=== PATIENT | male | born 1960 | race Caucasian/White ===

== ENCOUNTER 2023-08-30 14:33 | Outpatient (AMB) | payer BC, SELFPAY ==
--- NOTE | 2023-08-30 15:07 | HO.NEPHOV_ITS ---
HPI HPI Comments History of Present Illness Details I would the pleasure seeing Zachariah in follow-up for his hypertension. He denies any chest pain, shortness of breath, paroxysmal nocturnal dyspnea, orthopnea, pedal edema, orthostatic or urinary symptoms. He is active and does not take excessive salt in the diet. He avoids nonsteroidal anti- inflammatories. He maintains good hydration. He is on statins. He is closely followed by his primary care physician. [facility] Medical History (Updated 09/11/23 @ 20:18 by Tadeo Roldan MD) Hypertension Surgical History (Updated 08/30/23 @ 15:10 by Tonya Gleason MA) History of knee surgery Social History (Updated 08/30/23 @ 15:11 by Tonya Gleason MA) Alcohol intake: current Patient Tobacco Use Status: Never used Tobacco Vital Signs 08/30/23 15:08 Height 5 ft 10.5 in Weight 178 lb BMI 25.2 BP 126/80 Blood Pressure Location Rt brachial Position Sitting Pulse 66 Pulse Source Pulse Oximeter Pulse Oximetry (%) 98 Oxygen Delivery Method Room Air Physical Exam Vital Signs: Last Vital Signs Pulse 66 08/30/23 15:08 BP 126/80 08/30/23 15:08 Pulse Ox 98 08/30/23 15:08 Oxygen Delivery Method Room Air 08/30/23 15:08 BMI result Body Mass Index 25.2 Const General: comfortable and no acute distress Orientation/consciousness: patient oriented x3 HEENT Head: Yes normocephalic Mouth: Normal oral and palatal mucosa present Eyes EOM: EOMs intact bilaterally Neck Neck: Yes supple Resp Auscultation: clear to auscultation bilaterally Cardio Jugular venous distension: no JVD Rate: regular rate GI Palpation (GI): Soft to palpation Auscultation: normal bowel sounds General: Yes no CVA tenderness Back/Spine/Pelvis Back: no CVA tenderness Skin General skin exam: no rashes or lesions noted Neuro General: patient oriented x3 and moves all extremities Extrem General: Yes no pedal edema Assessment & Plan Assessment & Plan (1) Hypertension: Code(s): I10 - Essential (primary) hypertension Qualifiers: Hypertension type: primary hypertension Qualified Code(s): I10 - Essential (primary) hypertension Plan Zachariah has longstanding hypertension. He is currently on propranolol and amlodi pine. His blood pressure has been at goal. He does not have any orthostatic symptoms. He is maintaining his weight. He tries to keep up with a low-sodium diet. He keeps up with good hydration. He avoids nonsteroidal anti- inflammatories . He did not request any medication refills. I did not make any medication changes today. All questions answered. Follow-up given. Orders: Orders Blood Urea Nitrogen 08/30/23 I10 - Essential (primary) hypertension Electrolytes 08/30/23 I10 - Essential (primary) hypertension Creatinine 08/30/23 I10 - Essential (primary) hypertension Calcium 08/30/23 I10 - Essential (primary) hypertension Protein Creatinine Ratio, Ur 08/30/23 I10 - Essential (primary) hypertension Medications: New amlodipine 5 mg PO BEDTIME 90 tabs 4RF 90 days Coding Level of Care Code Est Pt Level 3 (05226) Diagnoses Primary hypertension I10 Hypertension type: primary hypertension Results Reviewed Nephrology Results: Sodium 145 mmol/L (135-145) 08/30/23 Potassium 4.3 mmol/L (3.3-5.1) 08/30/23 Chloride 109 mmol/L (96-108) H 08/30/23 Carbon Dioxide 31 mmol/L (22-29) H 08/30/23 BUN 19 mg/dL (9-16) H 08/30/23 Creatinine 1.09 mg/dL (0.5-1.4) 08/30/23 Calcium 9.5 mg/dL (8.4-10.2) 08/30/23 Urine Creatinine 159.55 mg/dL 08/30/23 Protein/Creatinin Ratio TNP 08/30/23
[2023-08-30 15:08] VITALS: BP 126/80; PULSE 66; O2SAT 98; BMI 25.2
== END 2023-08-30 15:29 | disposition home or self-care (01) ==
PROVIDERS: PCP Internal Medicine; Visit Provider Internal Medicine Nephrology
DX: I10 Essential (primary) hypertension (principal)
CPT/HCPCS: 99213

== ENCOUNTER 2023-08-30 14:33 | Outpatient (REF) | payer BC, SELFPAY ==
[2023-08-30 16:31] LABS: Anion Gap 9 (12-20); Blood Urea Nitrogen 19 mg/dL (9-16); Calcium 9.5 mg/dL (8.4-10.2); Carbon Dioxide 31 mmol/L (22-29); Chloride 109 mmol/L (96-108); Estimated Glomerular Filt Rate > 60; Potassium 4.3 mmol/L (3.3-5.1); Sodium 145 mmol/L (135-145)
[2023-08-30 16:57] LABS: Creatinine Urine 159.55 mg/dL; Total Protein Urine Random < 7 mg/dL (<12)
== END 2023-08-30 14:34 | disposition home or self-care (01) ==
LOC: HO.LAB 14:33
PROVIDERS: PCP Internal Medicine; Visit Provider Internal Medicine Nephrology
DX: I10 Essential (primary) hypertension (principal)
CPT/HCPCS: 36415; 80051; 82310; 82565; 82570; 84156; 84520

== ENCOUNTER 2024-04-19 11:34 | Outpatient (AMB) | payer BC, SELFPAY ==
--- NOTE | 2024-04-19 11:36 | HO.NEPHOV_ITS ---
Vital Signs 04/19/24 11:38 Height 5 ft 10.5 in Weight 177 lb 6 oz BMI 25.1 BP 100/60 Blood Pressure Location Rt brachial Position Sitting Pulse 68 Pulse Source Pulse Oximeter Pulse Oximetry (%) 98 Oxygen Delivery Method Room Air Intake Visit Reasons: CKD/ 6 MO FU/ Conf Chin Strap Sewer Required: No Accompanied by: Self / Same As Patient Allergies oxycodone-acetaminophen Allergy (Uncoded 08/29/23 14:52) Nausea and Vomiting HPI Comments Details: I would the pleasure seeing Zachariah in follow-up for his hypertension. He denies any chest pain, shortness of breath, paroxysmal nocturnal dyspnea, orthopnea, pedal edema, orthostatic or urinary symptoms. He is active and does not take excessive salt in the diet. He avoids nonsteroidal anti-inflammatories. He maintains good hydration. He is on statins. He is closely followed by his primary care physician closely. He had B/L knee replacements recently. [facility] Medical History (Updated 09/11/23 @ 20:18 by Tadeo Roldan MD) Hypertension Surgical History (Updated 04/19/24 @ 11:41 by Tonya Gleason MA) History of bilateral knee replacement History of knee surgery Social History Alcohol intake: current Patient Tobacco Use Status: Never used Tobacco Review of Systems Const All systems reviewed & are unremarkable except as noted in HPI and below Physical Exam Vital Signs: Last Vital Signs Pulse 68 04/19/24 11:38 BP 100/60 04/19/24 11:38 Pulse Ox 98 04/19/24 11:38 Oxygen Delivery Method Room Air 04/19/24 11:38 BMI result Body Mass Index 25.1 Const General: comfortable and no acute distress Orientation/consciousness: patient oriented x3 HEENT Head: Yes normocephalic Mouth: Normal oral and palatal mucosa present Eyes EOM: EOMs intact bilaterally Neck Neck: Yes supple Resp Auscultation: clear to auscultation bilaterally Cardio Jugular venous distension: no JVD Rate: regular rate GI Palpation (GI): Soft to palpation Auscultation: normal bowel sounds General: Yes no CVA tenderness Back/Spine/Pelvis Back: no CVA tenderness Skin General skin exam: no rashes or lesions noted Neuro General: patient oriented x3 and moves all extremities Assessment & Plan Assessment & Plan (1) Hypertension: Code(s): I10 - Essential (primary) hypertension Category: Medical Qualifiers: Hypertension type: primary hypertension Qualified Code(s): I10 - Essential (primary) hypertension Plan Zachariah has longstanding hypertension. He is currently on propranolol and amlodipine. His blood pressure has been at goal. He does not have any orthostatic symptoms. He is maintaining his weight. He tries to keep up with a low-sodium diet. He keeps up with good hydration. He avoids nonsteroidal anti- inflammatories . He did not request any medication refills. I did not make any medication changes today. All questions answered. Follow-up given. Orders: Orders Protein Creatinine Ratio, Ur 8 Months I10 - Essential (primary) hypertension Creatinine 8 Months I10 - Essential (primary) hypertension Blood Urea Nitrogen 8 Months I10 - Essential (primary) hypertension Electrolytes 8 Months I10 - Essential (primary) hypertension Coding Level of Care Code Est Pt Level 4 (35382) Diagnoses Primary hypertension I10 Hypertension type: primary hypertension
[2024-04-19 11:38] VITALS: BP 100/60; PULSE 68; O2SAT 98; BMI 25.1
== END 2024-04-19 11:56 | disposition home or self-care (01) ==
PROVIDERS: PCP Internal Medicine; Visit Provider Internal Medicine Nephrology
DX: I10 Essential (primary) hypertension (principal)
CPT/HCPCS: 99213

== ENCOUNTER → 2024-04-19 11:34 | Outpatient (BNVA) | payer BC, SELFPAY | PROVIDERS: PCP Internal Medicine; Visit Provider Internal Medicine Nephrology ==

== ENCOUNTER 2024-12-11 10:19 | Outpatient (REF) | payer BC, SELFPAY ==
--- OUTSIDE RECORDS SUMMARY | 2024-12-11 11:17 | XMS_ITS | Clinical Summary ---
Author Organization [facility] Address [address] [place] [address] Care Team Providers Care Yarding Engineer Name Role Phone Jaxson Marie MD Primary Care Provider Medications Medication Sig Dispensed Refills Start Date End Date Status amLODIPine (NORVASC) tablet 5 mg 0 01/18/2018 Active atorvastatin (LIPITOR) tablet 20 mg 0 02/05/2018 Active omeprazole (PRILOSEC) 20 MG capsule Take 20 mg by mouth daily. 0 Active montelukast (SINGULAIR) 10 MG tablet Take 10 mg by mouth every night at bedtime. 0 Active Active Problems Problem Noted Date Diagnosed Date Primary osteoarthritis of both knees 03/22/2018 Social History Tobacco Use Types Packs/Day Years Used Date Smoking Tobacco: Never Assessed Sex and Gender Information Value Date Recorded Sex Assigned at Not on file Gender Identity Not on file Sexual Orientation Not on file Job Start Date Occupation Industry Not on file Not on file Not on file Last Filed Vital Signs Vital Sign Reading Time Taken Comments Blood Pressure - - Pulse - - Temperature - - Respiratory Rate - - Oxygen Saturation - - Inhaled Oxygen Concentration - - Weight 80.3 kg (177 lb) 03/22/2018 9:19 AM EDT Height 180.3 cm (5' 11 ) 03/22/2018 9:19 AM EDT Body Mass Index 24.69 03/22/2018 9:19 AM EDT Plan of Treatment Health Maintenance Due Date Last Done Comments Hepatitis C Screening 1960 COVID-19 Vaccine (#1) 06/02/1959 Depression Screening 1970 Preventative Health Evaluation 1976 DTap / Tdap / Td (1 - Tdap) 1977 Colon Cancer Screening (Colonoscopy) 12/01/2003 Shingrix-Zoster Vaccine (1 of 2) 2008 Fall Risk Assessment 12/01/2023 Pneumococcal Vaccine (1 of 1 - PCV) 12/01/2023 Influenza Vaccine (#1) 2024 RSV Adult > 60+ Yrs or Pregn ant (1 - 1-dose 75+ series) 2033 Hepatitis B Vaccines Aged Out No long er eligible based on patient's age to complete this topic RSV Ped < 20 months Aged Out No longe r eligible based on patient's age to complete this topic Care Teams Yarding Engineer Relationship Specialty Start Date End Date Jaxson Marie MD PCP - General Internal Medicine 03/07/18
[2024-12-11 12:50] LABS: Anion Gap 12 (12-20); Blood Urea Nitrogen 16 mg/dL (9-16); Carbon Dioxide 27 mmol/L (22-29); Chloride 105 mmol/L (96-108); Estimated Glomerular Filt Rate > 60; Potassium 4.5 mmol/L (3.3-5.1); Sodium 139 mmol/L (135-145)
[2024-12-11 13:10] LABS: Creatinine Urine 30.97 mg/dL; Total Protein Urine Random < 7 mg/dL (<12)
== END 2024-12-11 10:20 | disposition home or self-care (01) ==
LOC: HO.LAB 10:19
PROVIDERS: PCP Internal Medicine; Visit Provider Internal Medicine Nephrology
DX: I10 Essential (primary) hypertension (principal)
CPT/HCPCS: 36415; 80051; 82565; 82570; 84156; 84520

== ENCOUNTER 2024-12-18 09:30 | Outpatient (AMB) | payer BC, SELFPAY ==
--- NOTE | 2024-12-18 09:34 | HO.NEPHOV ---
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 He denies any chest pain, shortness of breath, paroxysmal nocturnal dyspnea, orthopnea, pedal edema, orthostatic or urinary symptoms. He is active and does not take excessive salt in the diet. He avoids nonsteroidal anti-inflammatories. He maintains good hydration. He is on statins. He is closely followed by his primary care physician closely. He had B/L knee replacements and is very active. He monitors BP at home and has been at goal [facility] Medical History (Updated 09/11/23 @ 20:18 by Tadeo Roldan MD) Hypertension Surgical History History of bilateral knee replacement History of knee surgery Social History Alcohol intake: current Patient Tobacco Use Status: Never used Tobacco Review of Systems Const All systems reviewed & are unremarkable except as noted in HPI and below Physical Exam Vital Signs: Last Vital Signs Pulse 58 12/18/24 09:36 BP 130/60 12/18/24 09:36 Pulse Ox 99 12/18/24 09:36 Oxygen Delivery Method Room Air 12/18/24 09:36 BMI result Body Mass Index 25.9 Const General: comfortable and no acute distress Orientation/consciousness: patient oriented x3 HEENT Head: Yes normocephalic Mouth: Normal oral and palatal mucosa present Eyes EOM: EOMs intact bilaterally Neck Neck: Yes supple Resp Auscultation: clear to auscultation bilaterally Cardio Jugular venous distension: no JVD Rate: regular rate GI Palpation (GI): Soft to palpation Auscultation: normal bowel sounds General: Yes no CVA tenderness Back/Spine/Pelvis Back: no CVA tenderness Skin General skin exam: no rashes or lesions noted Neuro General: patient oriented x3 and moves all extremities Extrem General: Yes no pedal edema Results Reviewed Nephrology Results: Sodium 139 mmol/L (135-145) 12/11/24 Potassium 4.5 mmol/L (3.3-5.1) 12/11/24 Chloride 105 mmol/L (96-108) 12/11/24 Carbon Dioxide 27 mmol/L (22-29) 12/11/24 BUN 16 mg/dL (9-16) 12/11/24 Creatinine 0.91 mg/dL (0.5-1.4) 12/11/24 Calcium 9.5 mg/dL (8.4-10.2) 08/30/23 Urine Creatinine 30.97 mg/dL 12/11/24 Protein/Creatinin Ratio TNP 12/11/24 Assessment & Plan Assessment & Plan (1) Hypertension: Code(s): I10 - Essential (primary) hypertension Category: Medical Qualifiers: Hypertension type: primary hypertension Qualified Code(s): I10 - Essential (primary) hypertension Plan Zachariah has longstanding hypertension which is well controlled on current medications. He does not have any orthostatic symptoms. He is maintaining his weight but would benefit from some weight loss. He tries to keep up with a low-sodium diet and good hydration. He avoids nonsteroidal anti-inflammatories .I did not make any medication changes today. All questions answered. Follow-up given in a year Orders: Orders Creatinine 1 Year I10 - Essential (primary) hypertension Blood Urea Nitrogen 1 Year I10 - Essential (primary) hypertension Electrolytes 1 Year I10 - Essential (primary) hypertension Coding Level of Care Code Est Pt Level 4 (55408) Diagnoses Primary hypertension I10 Hypertension type: primary hypertension
[2024-12-18 09:36] VITALS: BP 130/60; PULSE 58; O2SAT 99; BMI 25.9
--- OUTSIDE RECORDS SUMMARY | 2024-12-18 09:53 | XMS_ITS | Clinical Summary ---
Author Organization [facility] Address [address] [place] [address] Care Team Providers Care Instrument Worker Name Role Phone Jaxson Marie MD Primary [...] of 1 - PCV) 12/01/2023 Influenza Vaccine (Season Ended) 2025 RSV Adult > 60+ Yrs or Pregn ant (1 - 1-dose 75+ series) 2033 Hepatitis B Vaccines Aged Out No long er eligible based on patient's age to complete this topic RSV Ped < 20 months Aged Out No longe r eligible based on patient's age to complete this topic Care Teams Instrument Worker Relationship Specialty Start Date End Date Jaxson Marie MD PCP - General Internal Medicine 03/07/18
== END 2024-12-18 09:52 | disposition home or self-care (01) ==
LOC: HO.HKA 09:30
PROVIDERS: PCP Internal Medicine; Visit Provider Internal Medicine Nephrology
DX: I10 Essential (primary) hypertension (principal)
CPT/HCPCS: 99214

== ENCOUNTER → 2024-12-18 09:30 | Outpatient (BNVA) | payer BC, SELFPAY | PROVIDERS: PCP Internal Medicine; Visit Provider Internal Medicine Nephrology ==